=== PATIENT | female | born 2005 | race Caucasian/White ===

== ENCOUNTER 2024-10-26 20:10 | Emergency (ER) | payer SELFPAY ==
[2024-10-26] MEDS ORDERED: Bacitracin 1 PK ONE (20:21)
[2024-10-26] MEDS ORDERED: Ibuprofen 600 MG TAB ONE (20:21)
[2024-10-26] MEDS ORDERED: Boostrix 0.5 ML (Tdap) VIAL (>/=7 yrs of age) ONE (20:22)
== END 2024-10-26 20:55 | disposition home or self-care (01) ==
LOC: MADERS 20:10
DX: T22.111A Burn of first degree of right forearm, initial encounter (principal); T31.0 Burns involving less than 10% of body surface; F17.290 Nicotine dependence, other tobacco product, uncomplicated; Z23 Encounter for immunization; X15.3XXA Contact with hot saucepan or skillet, initial encounter
CPT/HCPCS: 90471; 90715